=== PATIENT | female | born 1985 | race Two or more races ===

== ENCOUNTER 2017-08-03 08:30 | Outpatient (CLI) | payer OTHER | END 2017-08-03 09:00 | disposition home or self-care (01) | LOC: RX STUDY 08:30 | DX: R10.2 Pelvic and perineal pain (principal); N91.2 Amenorrhea, unspecified ==

== ENCOUNTER 2017-08-03 09:15 | Outpatient (CLI) | payer OTHER | END 2017-08-03 09:30 | disposition home or self-care (01) | LOC: SONOGRAMA 09:15 | DX: N94.0 Mittelschmerz (principal); R10.2 Pelvic and perineal pain; N94.89 Other specified conditions associated with female genital organs and menstrual cycle ==

== ENCOUNTER 2021-01-20 13:15 | Inpatient (IN) | payer OTHER ==
[~2021-01-20] VITALS: Ht 170.2 cm; Wt 2.7 kg
[2021-02-18] MEDS ORDERED: ATABEX OB TABL1 EACH PO (14:16)
[2021-02-19] MEDS ORDERED: ATABEX DHA 200200 MG (08:04)
[2021-02-19] MEDS ORDERED: FOLIC ACID1 MG (08:05)
[2021-02-19] MEDS ORDERED: FOLBEE TABLET1 EACH (08:05)
== END 2021-02-20 10:41 | disposition home or self-care (01) | DRG 788 ==
LOC: LDR 02-16 13:15 → O/R 02-18 16:39 → SURG-SUITE 02-18 17:38
PROVIDERS: ADMIT Obstetrics & Gynecology; ATTEND Obstetrics & Gynecology
PROC: 3E033VJ Introduction of Other Hormone into Peripheral Vein, Percutaneous Approach (ICD-10-PCS; 2021-02-18)
PROC: 4A1HXFZ Monitoring of Products of Conception, Cardiac Rhythm, External Approach (ICD-10-PCS; 2021-02-18)
PROC: 10D00Z1 Extraction of Products of Conception, Low, Open Approach (ICD-10-PCS; principal; 2021-02-18 15:00)
DX: O65.8 Obstructed labor due to other maternal pelvic abnormalities (principal); O48.0 Post-term pregnancy; Z3A.40 40 weeks gestation of pregnancy; Z37.0 Single live birth

== ENCOUNTER → 2021-02-10 | Outpatient (CLI) | payer OTHER ==
[~2021-02-10] MED LIST: ATABEX DHA 200200 MG; ATABEX OB TABL1 EACH PO; FOLBEE TABLET1 EACH; FOLIC ACID1 MG
== END | disposition home or self-care (01) ==
LOC: NST 13:57
PROVIDERS: ATTEND Obstetrics & Gynecology Maternal & Fetal Medicine
DX: Z34.83 Encounter for supervision of other normal pregnancy, third trimester (principal)

== ENCOUNTER 2021-02-16 11:22 | Outpatient (CLI) | payer OTHER | END 2021-02-16 12:50 | disposition home or self-care (01) | LOC: NST 11:22 | PROVIDERS: ATTEND Obstetrics & Gynecology Maternal & Fetal Medicine | DX: Z34.83 Encounter for supervision of other normal pregnancy, third trimester (principal) ==

== ENCOUNTER 2023-03-23 07:22 | Day surgery (SDC) | payer OTHER ==
[2023-03-16 10:54] LABS: HEMATOCRIT 38.3 % (36.0-45.00); HEMOGLOBIN 12.8 g/dL (12.0-15.00); MEAN CELL VOLUME 81.8 fL (80.00-100.00); MEAN CORPUSCULAR HEMOGLOBIN 27.3 pg (27.00-32.0); MEAN CORPUSCULAR HGB CONC 33.3 g/dl (32.0-36.0); PLATELET COUNT 265 K/uL (150-450); RED BLOOD COUNT 4.69 M/uL (4.00-6.00); RED CELL DISTRIBUTION WIDTH 14.8 % (11.5-14.5)
[2023-03-16 11:20] LABS: INR 0.99; PARTIAL THROMBOPLASTIN TIME 30.2 SECONDS (22.0-34.0); PROTHROMBIN TIME 10.4 SECONDS (9.0-11.5)
[2023-03-16 11:23] LABS: ALBUMIN 3.6 gm/dL (3.4-5.0); BILIRUBIN TOTAL 0.42 mg/dL (0.3-1.2); CALCIUM 8.7 mg/dL (8.5-10.1); CREATININE SERUM 0.56 mg/dL (0.55-1.02); GFR 121.81; GLOBULINA 3.2 G/DL (2.4-3.5); POTASSIUM 4.07 mEq/L (3.5-5.1); TOTAL PROTEIN 6.8 gm/dL (6.4-8.2)
[~2023-03-23 07:22] MED LIST changes: +ZYRTEC10 M3 PO
== END 2023-03-23 15:25 | disposition home or self-care (01) ==
LOC: CIR.AMB 07:22
PROVIDERS: ATTEND Obstetrics & Gynecology
DX: N84.0 Polyp of corpus uteri (principal); Z20.822 Contact with and (suspected) exposure to COVID-19; Z91.013 Allergy to seafood